=== PATIENT | female | born 1990 | race Caucasian/White ===

== ENCOUNTER → 2017-06-23 | Outpatient (CLI) | payer BC ==
[~2017-06-23] MED LIST: BCP TD; LEVAQUIN 5500 MG/TAB PO; LORTAB 5/500 501 TAB PO; PERCOCET 325 MG1 TA2 PO; PHENTERMINE15 MG PO; ZOFRAN 4MG T4 MG/TAB PO; bcp
== END ==
LOC: SUN.DIA 10:51
DX: E11.9 Type 2 diabetes mellitus without complications (principal); E66.9 Obesity, unspecified; Z68.41 Body mass index [BMI] 40.0-44.9, adult; Z71.3 Dietary counseling and surveillance
CPT/HCPCS: G0108

== ENCOUNTER → 2017-07-16 | Outpatient (CLI) | payer BC | LOC: SUN.DIA 10:27 | DX: E11.9 Type 2 diabetes mellitus without complications (principal); E66.9 Obesity, unspecified; Z71.3 Dietary counseling and surveillance | CPT/HCPCS: G0109 ==

== ENCOUNTER → 2017-07-23 | Outpatient (CLI) | payer BC | LOC: SUN.DIA 15:46 | DX: E11.9 Type 2 diabetes mellitus without complications (principal); E66.9 Obesity, unspecified; Z71.3 Dietary counseling and surveillance | CPT/HCPCS: G0109 ==

== ENCOUNTER → 2017-08-06 | Outpatient (CLI) | payer BC | LOC: SUN.DIA 07-24 09:00 | DX: E11.9 Type 2 diabetes mellitus without complications (principal); E66.9 Obesity, unspecified; Z71.3 Dietary counseling and surveillance | CPT/HCPCS: G0109 ==